=== PATIENT | female | born 1975 | race Caucasian/White ===

== ENCOUNTER 2018-04-03 20:18 | Emergency (ER) | payer OTHER ==
--- NOTE | 2018-04-03 21:26 | EDM.PDOC ---
ED HPI GENERAL MEDICAL PROBLEM - General Stated Complaint: RT MIDDLE FINGER LAC Time Seen by Provider: 04/03/18 20:31 Source of Information: Reports: Patient, Family (coworkers) History Limitations: Reports: No Limitations - History of Present Illness INITIAL COMMENTS - FREE TEXT/NARRATIVE: 43 y.o.w.jumana came to the ed with her coworkers after she cut herself with an sharp object into her right 3rd finger distal phalanx. The wound was mildly bleeding initially. it stopped after pressure was applied. TD UTD (>5 yerars < 10 years. No N/V/D or dizziness or any other acute medical issues. BP 117/78 RR 18 pulse 72 Temp 36.7 Pulse ox 98% on RA Onset Date: 04/03/18 Onset Time: 18:00 Duration: Hour(s): Location: Reports: Upper Extremity, Right (3rd right finger) Quality: Reports: Dull Severity: Mild Improves with: Reports: Other (pressure to wound) Worsens with: Reports: None Associated Symptoms: Reports: No Other Symptoms - Related Data Allergies Allergy/AdvReac Type Severity Reaction Status Date / Time morphine Allergy Hives Verified 04/03/18 23:44 omeprazole [From Prilosec] Allergy KIDNEY Verified 04/03/18 23:44 DAMAGE omeprazole magnesium Allergy KIDNEY Verified 04/03/18 23:44 [From Prilosec] DAMAGE Sulfa (Sulfonamide Allergy Hives Verified 04/03/18 23:44 Antibiotics) MOLD Allergy Hives Uncoded 04/14/14 14:22 YEAST Allergy Hives Uncoded 04/14/14 14:22 Home Meds: Home Meds Albuterol [Ventolin HFA] 2 puff INH Q4H PRN 04/14/14 [History] Cholecalciferol (Vitamin D3) [Vitamin D3] 4,000 unit PO DAILY 04/14/14 [History] Citalopram Hydrobromide [Celexa] 1.5 tab PO DAILY 04/14/14 [History] Fluocinonide [Lidex 0.05% Crm] 30 gm TOP BID 04/14/14 [History] LORazepam [Ativan] 1 mg PO ASDIRECTED PRN 04/14/14 [History] Lactobacillus Combo No.11 [Probiotic] 1 each PO DAILY 04/14/14 [History] Montelukast [Singulair] 10 mg PO DAILY 04/14/14 [History] Potassium Chloride [Klor-Con M20] 20 meq PO DAILY 04/14/14 [History] Ranitidine [Zantac] 150 mg PO BEDTIME 04/14/14 [History] Zolpidem [Ambien CR] 6.25 mg PO BEDTIME PRN 04/14/14 [History] traMADol HCl [Ultram] 50 mg PO Q12HR PRN 04/14/14 [History] traZODone 50 mg PO BEDTIME PRN 04/14/14 [History] Amoxicillin/Potassium Clav [Augmentin 875-125 Tablet] 1 each PO BID #20 tablet 04/03/18 [Rx] Review of Systems - Review of Systems Review Of Systems: See Below Constitutional: Reports: No Symptoms Eyes: Reports: No Symptoms Ears: Reports: No Symptoms Nose: Reports: No Symptoms Mouth/Throat: Reports: No Symptoms Respiratory: Reports: No Symptoms Cardiovascular: Reports: No Symptoms GI/Abdominal: Reports: No Symptoms Genitourinary: Reports: No Symptoms Musculoskeletal: Reports: No Symptoms Skin: Reports: Wound (abrasion/monor LAC right 3rd finger distal phalanx) Neurological: Reports: No Symptoms Psychiatric: Reports: No Symptoms ED EXAM, GENERAL - Physical Exam Exam: See Below Exam Limited By: No Limitations General Appearance: Alert, WD/WN, Mild Distress Eye Exam: Bilateral Eye: Normal Inspection Ears: Normal External Exam Ear Exam: Bilateral Ear: Auricle Normal Nose: Normal Inspection Throat/Mouth: Normal Inspection, Normal Lips, Normal Voice, No Airway Compromise Head: Atraumatic, Normocephalic Neck: Normal Inspection, Supple Respiratory/Chest: No Respiratory Distress Cardiovascular: Normal Peripheral Pulses, Regular Rate, Rhythm, No Edema, No JVD , No Murmur, No Rub Peripheral Pulses: 1+: Carotid (R) GI/Abdominal: Normal Bowel Sounds, Soft, Non-Tender (Female) Exam: Deferred Rectal (Female) Exam: Deferred Back Exam: Normal Inspection Extremities: Normal Range of Motion, No Pedal Edema, Normal Capillary Refill, Other (abrasion right 3rd finger, please see note above) Neurological: Alert, Oriented, CN II-XII Intact, Normal Cognition, Normal Gait Psychiatric: Normal Affect, Normal Mood Skin Exam: Warm, Dry, Intact, Normal Color, No Rash Lymphatic: No Adenopathy Course - Vital Signs Text/Narrative:: 43 y.o.w.f came to the ed with her coworkers after she cut herself with an sharp object into her right 3rd finger distal phalanx. The wound was mildly bleeding initially. it stopped after pressure was applied. TD UTD (>5 yerars < 10 years. No N/V/D or dizziness or any other acute medical issues. BP 117/78 RR 18 pulse 72 Temp 36.7 Pulse ox 98% on RA PE: WNWD WF with a minor abrasion right distal phalanx of middle finger Iamging: Not indicated. Labs: Not indicated Impression: Abrasion/superficial LAC right distal middle finger Tx: Wound care, Neosporine ointment, Tube Gaze Reexam: Bleeding stopped Plan: D/C with instructions Last Recorded V/S: Last Vital Signs Temp 36.8 C 04/03/18 20:31 Pulse 99 04/03/18 20:31 Resp 18 04/03/18 20:31 BP 115/70 04/03/18 20:31 Pulse Ox 98 04/03/18 20:31 - Orders/Labs/Meds Meds: Medications Discontinued Medications Generic Name Dose Route Start Last Admin Trade Name Ericq PRN Reason Stop Dose Admin Amoxicillin/Clavulanate Potassium 1 tab 04/03/18 21:31 04/03/18 21:59 Augmentin 875 Mg/125 Mg PO 04/03/18 21:32 1 tab ONETIME ONE Administration Departure - Departure Time of Disposition: 21:26 Disposition: Home, Self-Care 01 Condition: Good Clinical Impression: Abrasion, Laceration - Discharge Information Prescriptions: Amoxicillin/Potassium Clav [Augmentin 875-125 Tablet] 1 each PO BID #20 tablet Instructions: Abrasion, [id number] Referrals: Isis Andrews NP [Primary Care Provider] - Additional Instructions: Please apply neosporine to wound twice daily. Wound check in 2 days. Please do not come in contact with food. Please apply pressure if blood is using through, unlikely. Please come back to the ed if your symptoms get worse acutely.
[2018-04-03] MEDS: Amoxicillin/Clavulanate K 875-125 MG Tab PO ONE (21:59)
== END 2018-04-03 22:21 | disposition home or self-care (01) ==
LOC: FB.ED 20:18
DX: S61.212A Laceration without foreign body of right middle finger without damage to nail, initial encounter (principal); Z88.5 Allergy status to narcotic agent; Z88.8 Allergy status to other drugs, medicaments and biological substances; Z88.2 Allergy status to sulfonamides; Z79.899 Other long term (current) drug therapy; W26.8XXA Contact with other sharp object(s), not elsewhere classified, initial encounter
CPT/HCPCS: 99283; A9270

== ENCOUNTER 2019-10-27 16:03 | Emergency (ER) | payer MEDICARE, OTHER ==
[2019-10-27] MEDS ORDERED: Acetaminophen/HYDROcodone 325-10 MG Tab PO ONE (16:54)
--- NOTE | 2019-10-27 16:57 | EDM.PDOC ---
ED HPI GENERAL MEDICAL PROBLEM - General Chief Complaint: Upper Extremity Injury/Pain Stated Complaint: LT SHOULDER PAIN Time Seen by Provider: 10/27/19 16:52 Source of Information: Reports: Patient History Limitations: Reports: No Limitations - History of Present Illness INITIAL COMMENTS - FREE TEXT/NARRATIVE: Presents with left posterior shoulder pain since 1300 today, denies specific injury, but did shovel snow yesterday. Patient is right hand dominant. Denies chest pain or prior h/o CAD. Pain is worse with movement of shoulder and inspiration, and radiates to left upper back and posterior neck. Onset Date: 10/27/19 Onset Time: 13:00 Severity: Moderate - Related Data Allergies Allergy/AdvReac Type Severity Reaction Status Date / Time morphine Allergy Hives Verified 04/03/18 23:44 omeprazole [From Prilosec] Allergy KIDNEY Verified 04/03/18 23:44 DAMAGE omeprazole magnesium Allergy KIDNEY Verified 04/03/18 23:44 [From Prilosec] DAMAGE Sulfa (Sulfonamide Allergy Hives Verified 04/03/18 23:44 Antibiotics) MOLD Allergy Hives Uncoded 04/14/14 14:22 YEAST Allergy Hives Uncoded 04/14/14 14:22 Home Meds: Home Meds Albuterol [Ventolin HFA] 2 puff INH Q4H PRN 04/14/14 [History] Cholecalciferol (Vitamin D3) [Vitamin D3] 4,000 unit PO DAILY 04/14/14 [History] Citalopram Hydrobromide [Celexa] 1.5 tab PO DAILY 04/14/14 [History] Fluocinonide [Lidex 0.05% Crm] 30 gm TOP BID 04/14/14 [History] LORazepam [Ativan] 1 mg PO ASDIRECTED PRN 04/14/14 [History] Lactobacillus Combo No.11 [Probiotic] 1 each PO DAILY 04/14/14 [History] Montelukast [Singulair] 10 mg PO DAILY 04/14/14 [History] Potassium Chloride [Klor-Con M20] 20 meq PO DAILY 04/14/14 [History] Ranitidine [Zantac] 150 mg PO BEDTIME 04/14/14 [History] Zolpidem [Ambien CR] 6.25 mg PO BEDTIME PRN 04/14/14 [History] traMADol HCl [Ultram] 50 mg PO Q12HR PRN 04/14/14 [History] traZODone 50 mg PO BEDTIME PRN 04/14/14 [History] Amoxicillin/Potassium Clav [Augmentin 875-125 Tablet] 1 each PO BID #20 tablet 04/03/18 [Rx] Past Medical History Genitourinary History: Reports: Other (See Below) Other Genitourinary History: unsuccessful kidney transplant Hematologic History: Reports: Other (See Below) (Factor V leiden deficiency) Social & Family History - Family History Family Medical History: Noncontributory - Caffeine Use Caffeine Use: Reports: Coffee ED ROS GENERAL - Review of Systems Review Of Systems: Comprehensive ROS is negative, except as noted in HPI. ED EXAM, UPPER BACK/NECK PAIN - Physical Exam Exam: See Below Exam Limited By: No Limitations General Appearance: Alert, WD/WN, No Apparent Distress Nose Exam: Normal Inspection Throat/Mouth Exam: No Airway Compromise Head Exam: Atraumatic, Normocephalic Neck Exam: Paraspinous Muscle Tender (left) Cardiovascular/Respiratory: Regular Rate, Rhythm, No M/R/G, Normal Peripheral Pulses Extremities: Normal Range of Motion, Other (left posterior shoulder tenderness and left upper back tenderness) Neurologic: Alert, Normal Mood/Affect Skin Exam: Normal Color, Warm/Dry EKG INTERPRETATION EKG Date: 10/27/19 Time: 18:12 Rhythm: Other (sinus bradycardia) Rate (Beats/Min): 44 [place]: Normal P-Wave: Present QRS: Normal ST-T: Normal QT: Normal Course - Vital Signs Text/Narrative:: Triage vitals: T 97.4, BP 104/61, HR 53, Sa02 100% RA - Orders/Labs/Meds Orders: Active Orders 24 hr Category Date Time Status EKG Documentation Completion [RC] ASDIRECTED Care 10/27/19 16:51 Active Shoulder Comp Lt [CR] Stat Exams 10/27/19 16:51 Taken EKG 12 Lead [EK] Stat Ther 10/27/19 16:50 Ordered Labs: Laboratory Tests 10/27/19 10/27/19 10/27/19 Range/Units 17:25 17:25 17:25 WBC 8.7 (4.5-12.0) X10-3/uL RBC 4.85 (3.23-5.20) x10(6)uL Hgb 14.5 (11.5-15.5) g/dL Hct 43.3 (30.0-51.3) % MCV 89.3 (80-96) fL MCH 29.9 (27.7-33.6) pg MCHC 33.5 (32.2-35.4) g/dL RDW 12.3 (11.5-15.5) % Plt Count 275 (125-369) X10(3)uL MPV 8.0 (7.4-10.4) fL Neut % (Auto) 72.9 (46-82) % Lymph % (Auto) 22.5 (13-37) % [place] % (Auto) 3.0 L (4-12) % Eos % (Auto) 1 (1.0-5.0) % Baso % (Auto) 0 (0-2) % Neut # (Auto) 6.3 (1.6-8.3) # Lymph # (Auto) 2.0 (0.6-5.0) # [place] # (Auto) 0.3 (0.0-1.3) # Eos # (Auto) 0.1 (0.0-0.8) # Baso # (Auto) 0.0 (0.0-0.2) # Sodium 143 (135-145) mmol/L Potassium 4.1 (3.5-5.3) mmol/L Chloride 104 (100-110) mmol/L Carbon Dioxide 28 (21-32) mmol/L BUN 20 H (7-18) mg/dL Creatinine 1.4 H (0.55-1.02) mg/dL Est Cr Clr Drug Dosing TNP Estimated GFR (MDRD) 41 L (>60) BUN/Creatinine Ratio 14.3 (9-20) Glucose 80 (80-116) mg/dL Calcium 8.9 (8.6-10.2) mg/dL Total Bilirubin 0.5 (0.1-1.3) mg/dL AST 14 (5-25) IU/L ALT 14 (12-36) U/L Alkaline Phosphatase 48 L (56-112) IU/L Troponin I < 0.017 L (<0.017-0.056) ng/mL Total Protein 6.4 (6.0-8.0) g/dL Albumin 3.8 (3.5-5.2) g/dL Globulin 2.6 g/dL Albumin/Globulin Ratio 1.5 Meds: Medications Discontinued Medications Generic Name Dose Route Start Last Admin Trade Name Tyesha PRN Reason Stop Dose Admin Hydrocodone Bitart/Acetaminophen 1 tab 10/27/19 16:54 10/27/19 17:14 [place] 325-10 Mg PO 10/27/19 16:55 1 tab ONETIME ONE Administration - Radiology Interpretation Free Text/Narrative:: Left shoulder XR: No acute process. (ED provider interpretation) - Re-Assessments/Exams Free Text/Narrative Re-Assessment/Exam: 10/27/19 18:13 Symptoms improved after [place] 10/325 PO Departure - Departure Time of Disposition: 18:15 Disposition: Home, Self-Care 01 Condition: Good Clinical Impression: Upper back strain Qualifiers: Encounter type: initial encounter Qualified Code(s): S29.012A - Strain of muscle and tendon of back wall of thorax, initial encounter - Discharge Information *PRESCRIPTION DRUG MONITORING PROGRAM REVIEWED*: Yes *COPY OF PRESCRIPTION DRUG MONITORING REPORT IN PATIENT HANS: Not Applicable Instructions: Muscle Strain, [id number] Referrals: Isis Andrews NP [Primary Care Provider] - 2 Days Forms: ED Department Discharge Additional Instructions: Fill the [place] and Baclofen and take as directed. Rest. Do not take Acetaminophen containing medication while taking [place]. Follow up with your primary physician in 2-3 days. Return to the ER if symptoms worsen. Sepsis Event Note - Focused Exam Date Exam was Performed: 10/27/19 Time Exam was Performed: 18:10 - My Orders Last 24 Hours: My Active Orders 10/27/19 16:50 EKG 12 Lead [EK] Stat 10/27/19 16:51 EKG Documentation Completion [RC] ASDIRECTED Shoulder Comp Lt [CR] Stat - Assessment/Plan Last 24 Hours: My Active Orders 10/27/19 16:50 EKG 12 Lead [EK] Stat 10/27/19 16:51 EKG Documentation Completion [RC] ASDIRECTED Shoulder Comp Lt [CR] Stat
--- NOTE | 2019-10-28 11:31 | CR ---
INDICATION: Left shoulder pain. LEFT SHOULDER, COMPLETE: Five images of the left shoulder in four projections were obtained 10/27/19 and no comparisons were available. Mild degenerative hypertrophic changes are noted at the AC joint. No acute bone or joint abnormality was identified. Bone density overall appears to be normal. Adjacent ribs appear to be intact, as is the adjacent lung. IMPRESSION: Mild osteoarthritis AC joint. MTDD
== END 2019-10-27 18:29 | disposition home or self-care (01) ==
LOC: FB.ED 16:03
DX: S29.012A Strain of muscle and tendon of back wall of thorax, initial encounter (principal); D68.51 Activated protein C resistance; Z79.899 Other long term (current) drug therapy; Z88.2 Allergy status to sulfonamides; Z88.5 Allergy status to narcotic agent; Z88.8 Allergy status to other drugs, medicaments and biological substances; Z91.048 Other nonmedicinal substance allergy status; Y93.H1 Activity, digging, shoveling and raking; X50.0XXA Overexertion from strenuous movement or load, initial encounter
CPT/HCPCS: 36415; 73030-LT; 80053; 84484; 85025; 93005; 93010; 99284; 99284-25; A9270-GY

== ENCOUNTER 2023-12-26 10:58 | Emergency (ER) | payer SELFPAY ==
[2023-12-26] MEDS ORDERED: Naloxone 0.4 MG/ML SDV IVPUSH PRN (11:40)
[2023-12-26] MEDS ORDERED: Sodium Chloride 0.9% 10 ML Syringe FLUSH PRN (11:40)
[2023-12-26 11:54] LABS: EOSINOPHILS PERCENT AUTO 0.2 % (0.6-8.1); LYMPHOCYTES ABSOLUTE AUTO 1.3 x10-3/uL (1.0-4.4); MONOCYTES ABSOLUTE AUTO 0.4 x10-3/uL (0.3-1.0); WHITE BLOOD CELL COUNT,WBC 9.6 x10-3/uL (3.0-10.3)
[2023-12-26 11:58] LABS: BASOPHILS PERCENT AUTO 0.4 % (0.2-1.5); HEMOGLOBIN 13.2 g/dL (11.4-15.5); LYMPHOCYTES PERCENT AUTO 13.9 % (18.4-52.1); MEAN CORPUSCULAR HEMOGLOBIN 26.6 pg (23.9-33.9); MEAN CORPUSCULAR HGB CONC 32.9 g/dL (31.9-34.8); MEAN CORPUSCULAR VOLUME 80.8 fL (76.7-100.5); MONOCYTES PERCENT AUTO 3.8 % (4.4-15.7); NEUTROPHILS ABSOLUTE AUTO 7.8 x10-3/uL (1.5-6.3); NEUTROPHILS PERCENT AUTO 81.7 % (30.8-76.2); PLATELET COUNT,PLT 329 x10(3)uL (151-488); RED BLOOD CELL COUNT 4.95 x10(6)uL (3.60-5.20); RED CELL DISTRIBUTION WIDTH 14.3 % (12.3-16.5)
[2023-12-26 11:59] LABS: BLOOD UREA NITROGEN,BUN 17 mg/dL (7-18); BUN/CREATININE RATIO 12.1 (9-20); CALCIUM 8.9 mg/dL (8.6-10.2); CARBON DIOXIDE,CO2 29 mmol/L (21-32); CHLORIDE,CL 101 mmol/L (100-110); CREATININE 1.4 mg/dL (0.55-1.02); EST CRCL DRUG DOSING (CG) 40.65 mL/min; ESTIMATED GFR 46 mL/min (>60); GLUCOSE RANDOM 105 mg/dL (80-116); POTASSIUM,K 4.3 mmol/L (3.5-5.3); SODIUM,NA 138 mmol/L (135-145)
[2023-12-26] MEDS: Sodium Chloride 0.9% 500 ML IV ONE (11:59)
[2023-12-26] MEDS: HYDROmorphone 2 MG/ML SDV IVPUSH ONE ×2 (11:59→13:47)
[2023-12-26] MEDS: Ondansetron 4 MG/2 ML SDV IVPUSH ONE (11:59)
[2023-12-26 12:05] LABS: A/G RATIO 0.9; ALANINE AMINOTRANSFERASE,ALT 21 U/L (12-36); ALBUMIN 3.2 g/dL (3.5-5.2); ALKALINE PHOSPHATASE 65 IU/L (56-112); ASPARTATE AMNIOTRANSFERASE,AST 23 IU/L (5-25); BILIRUBIN TOTAL 0.5 mg/dL (0.1-1.3); MAGNESIUM 2.4 mg/dL (1.8-2.5); PROTEIN TOTAL,TP 6.6 g/dL (6.0-8.0)
[2023-12-26 12:51] LABS: BILIRUBIN,URINE NEGATIVE (NEGATIVE); GLUCOSE,URINE NORMAL (NORMAL); KETONES,URINE NEGATIVE (NEGATIVE); LEUKOCYTE ESTERASE,URINE NEGATIVE (NEGATIVE); NITRITE,URINE POSITIVE (NEGATIVE); OCCULT BLOOD,URINE NEGATIVE (NEGATIVE); PROTEIN,URINE NEGATIVE (NEGATIVE); UROBILINOGEN,URINE NORMAL (NEGATIVE)
[2023-12-26 12:52] LABS: APPEARANCE,URINE SLIGHTLY CLOUDY (CLEAR); BACTERIA,URINE MANY (NS); COLOR,URINE YELLOW (YELLOW); RBC,URINE 0-5 (0-5); SQUAMOUS EPITHELIAL CELLS,UR OCCASIONAL (NS,R,O)
[2023-12-26] MEDS: Sodium Chloride 0.9% 1,000 ML IV SCH (13:12)
[2023-12-26] MEDS: Sodium Chloride 0.9% 1,000 ML IV ONE (13:31)
[2023-12-26] MEDS: Piperacillin/Tazobactam 3.375 GM in Sodium Chloride 0.9% 50 ML IV ONE (13:40)
== END 2023-12-26 15:12 ==
LOC: FB.ED 10:58
DX: K63.1 Perforation of intestine (nontraumatic) (principal); N18.30 Chronic kidney disease, stage 3 unspecified; E66.9 Obesity, unspecified; F17.210 Nicotine dependence, cigarettes, uncomplicated; Z88.8 Allergy status to other drugs, medicaments and biological substances; Z88.2 Allergy status to sulfonamides; Z91.048 Other nonmedicinal substance allergy status; Z99.2 Dependence on renal dialysis; Z86.19 Personal history of other infectious and parasitic diseases; Z68.23 Body mass index [BMI] 23.0-23.9, adult
CPT/HCPCS: 36415; 71045; 74176; 80053; 81001; 82947; 83690; 83735; 84484; 85025; 85379; 87086; 87088; 87186; 93005; 93010; 96361; 96365; 96375; 96376; 99285; 99285-25; J1170; J2405; J2543; J3490; J7030; J7040